=== PATIENT | male | born 1955 | race Caucasian/White ===

== ENCOUNTER 2018-11-23 05:23 | Inpatient (IN) | payer OTHER, MEDICARE ==
[2018-11-23] MEDS ORDERED: BUPIVACAINE 0.5% (SDV) 30 ML, morphine SULFATE (PF) 8 MG, EPINEPHrine 0.3 MG, KETOROLAC... IRR (06:00)
[2018-11-23] MEDS ORDERED: SOD CHLORIDE 0.9% 100 ML, TRANEXAMIC ACID 3,000 MG IRR (06:00)
[2018-11-23] MEDS ORDERED: CEFAZOLIN 2 GM/50 ML (PMX) 50 ML IVPB (06:00)
[2018-11-23] MEDS ORDERED: TRANEXAMIC ACID 1GM/100ML(PMX) 100 ML IVPB (06:00)
[2018-11-23] MEDS: GABAPENTIN 300 MG CAP PO ×2 (06:02→20:51)
[2018-11-23] MEDS: DEXAMETHASONE 1 MG TAB PO (06:02)
[2018-11-23] MEDS ORDERED: CA CHLORIDE (GM) 10% 10 ML INJ (06:52)
[2018-11-23] MEDS ORDERED: TRANEXAMIC ACID 1GM/100ML(PMX) 100 ML (06:52)
[2018-11-23] MEDS: POLYMYXIN/BACITRACIN 1L IRRIG (06:52)
[2018-11-23] MEDS ORDERED: THROMBIN (BOVINE) 5,000 UNIT VIAL TP (06:52)
[2018-11-23] MEDS ORDERED: ONDANSETRON 4 MG INJ (06:53)
[2018-11-23] MEDS ORDERED: MIDAZOLAM 1 MG/ML 2 ML INJ (06:53)
[2018-11-23] MEDS ORDERED: morphine SULFATE/PF (10 MG/10 ML) INJ (06:53)
[2018-11-23] MEDS ORDERED: METOCLOPRAMIDE 10 MG INJ (06:54)
[2018-11-23] MEDS ORDERED: CEFAZOLIN 1 GM INJ (07:00)
[2018-11-23] MEDS ORDERED: EPHEDrine 25 MG/5 ML SYG (07:00)
[2018-11-23] MEDS ORDERED: DIPHENHYDRAMINE 50 MG INJ IV ×2 (09:00→09:30)
[2018-11-23] MEDS ORDERED: MAGNESIUM HYDROXIDE 30ML CUP PO (09:00)
[2018-11-23] MEDS ORDERED: HYDROmorphONE 1 MG/ML SYG IV (09:00)
[2018-11-23] MEDS ORDERED: oxyCODONE 5 MG TAB PO ×2 (09:00)
[2018-11-23] MEDS ORDERED: NACL 0.9% 3 ML SYG IV (09:00)
[2018-11-23] MEDS ORDERED: MEPERIDINE 25 MG INJ IV (09:30)
[2018-11-23] MEDS ORDERED: FENTAnyl 50 MCG/ML VIAL IV ×3 (09:30)
[2018-11-23] MEDS ORDERED: HYDROmorphONE 1 MG/5 ML IV SYRINGE IV ×3 (09:30)
[2018-11-23] MEDS ORDERED: ONDANSETRON 4 MG INJ IV (09:30)
[2018-11-23] MEDS ORDERED: KETOROLAC 30 MG INJ IV (09:30)
[2018-11-23] MEDS ORDERED: CEFAZOLIN 1 GM/50 ML (PMX) 50 ML IVPB ×2 (10:13→10:30)
[2018-11-23] MEDS: LACTATED RINGER'S 1,000 ML IV ×3 (11:02→20:52)
[2018-11-23] MEDS: SENNA/DOCUSATE NA (8.6MG/50MG) TAB PO ×2 (12:48→20:51)
[2018-11-23] MEDS: DEXAMETHASONE 2 MG TAB PO ×3 (12:48→23:24)
[2018-11-23] MEDS: ACETAMINOPHEN 1000MG/100ML IV 100 ML IVPB ×2 (13:18→20:52)
[2018-11-23 14:14] LABS: ADD MAN DIFF? NO
[2018-11-23 14:19] LABS: ABNORMAL IP MESSAGE 1; BASOPHILS % 0.3 % (0.0-2.0); HEMATOCRIT 35.9 % (42.0-52.0); HEMOGLOBIN 11.8 g/dl (14.0-18.0); LYMPHOCYTES # 0.6 10^3/ul (0.8-2.9); LYMPHOCYTES % 8.2 % (15.0-51.0); MEAN CORPUSCULAR HEMOGLOBIN 30.6 pg (29.0-33.0); MEAN CORPUSCULAR HGB CONC 32.9 g/dl (32.0-37.0); MEAN PLATELET VOLUME 10.1 fl (7.4-10.4); MONOCYTE # 0.5 10^3/ul (0.3-0.9); MONOCYTES % 7.2 % (0.0-11.0); NEUTROPHIL # 5.6 10^3/ul (1.6-7.5); NEUTROPHILS % 83.7 % (39.0-77.0); PLATELET COUNT 157 10^3/UL (140-415); POSITIVE DIFF @See below; RED BLOOD COUNT 3.86 10^6/ul (4.70-6.10); RED CELL DISTRIBUTION WIDTH 12.8 % (11.5-14.5)
[2018-11-23 14:19] LABS: WHITE BLOOD COUNT 6.7 10^3/ul (4.8-10.8)
[2018-11-23] MEDS: ONDANSETRON 4 MG INJ IV (16:00)
[2018-11-23] MEDS: CEFAZOLIN 1 GM/50 ML (PMX) 50 ML IVPB (18:37)
[2018-11-23] MEDS ORDERED: ZOLPIDEM 5 MG TAB PO (21:00)
[2018-11-24] MEDS: CEFAZOLIN 1 GM/50 ML (PMX) 50 ML IVPB ×2 (01:54→10:36)
[2018-11-24] MEDS: LACTATED RINGER'S 1,000 ML IV (04:48)
[2018-11-24 05:04] LABS: ADD MAN DIFF? NO
[2018-11-24 05:07] LABS: WHITE BLOOD COUNT 8.1 10^3/ul (4.8-10.8)
[2018-11-24 05:07] LABS: BASOPHILS % 0.1 % (0.0-2.0); HEMATOCRIT 34.4 % (42.0-52.0); HEMOGLOBIN 11.6 g/dl (14.0-18.0); LYMPHOCYTES # 0.6 10^3/ul (0.8-2.9); LYMPHOCYTES % 7.4 % (15.0-51.0); MEAN CORPUSCULAR HEMOGLOBIN 30.9 pg (29.0-33.0); MEAN CORPUSCULAR HGB CONC 33.7 g/dl (32.0-37.0); MEAN CORPUSCULAR VOLUME 91.7 fl (82.0-101.0); MEAN PLATELET VOLUME 10.3 fl (7.4-10.4); MONOCYTE # 0.7 10^3/ul (0.3-0.9); MONOCYTES % 9.1 % (0.0-11.0); NEUTROPHIL # 6.7 10^3/ul (1.6-7.5); NEUTROPHILS % 83.2 % (39.0-77.0); PLATELET COUNT 158 10^3/UL (140-415); RED BLOOD COUNT 3.75 10^6/ul (4.70-6.10); RED CELL DISTRIBUTION WIDTH 12.5 % (11.5-14.5)
[2018-11-24] MEDS: DEXAMETHASONE 2 MG TAB PO (06:40)
[2018-11-24] MEDS: ACETAMINOPHEN 1000MG/100ML IV 100 ML IVPB (06:43)
[2018-11-24] MEDS: ASPIRIN (EC) 325 MG TAB PO (09:11)
[2018-11-24] MEDS: SENNA/DOCUSATE NA (8.6MG/50MG) TAB PO (09:11)
[2018-11-24] MEDS: oxyCODONE 5 MG TAB PO ×2 (11:22→17:02)
[2018-11-25] MEDS ORDERED: MAGNESIUM HYDROXIDE 30ML CUP PO (21:00)
== END 2018-11-24 17:35 | disposition home or self-care (01) | DRG 470 ==
LOC: REC 05:23 → MS1 10:09
PROVIDERS: Orthopaedic Surgery
PROC: 0SR904A Replacement of Right Hip Joint with Ceramic on Polyethylene Synthetic Substitute, Uncemented, Open Approach (ICD-10-PCS; principal; 2018-11-23 06:58)
DX: M16.11 Unilateral primary osteoarthritis, right hip (principal)
CPT/HCPCS: 72170; 73530; 85025; 86999; 87086; 88304; 88311; 97116; 97161